=== PATIENT | female | born 1995 | race Caucasian/White ===

== ENCOUNTER 2022-07-27 09:47 | Emergency (ER) | payer OTHER, SELFPAY ==
[2022-07-27 10:00] VITALS: BP 116/72; PULSE 87; RESP 16; TEMP 36.6; O2SAT 100
--- NOTE | 2022-07-27 10:13 | ED.GENADULT ---
HPI - General Adult General Chief complaint: Ear Stated complaint: Bilateral Ear Irritation Time Seen by Provider: 07/27/22 10:13 Source: patient Mode of arrival: ambulatory Limitations: no limitations History of Present Illness HPI narrative: 26-year-old female patient presents to the [facility] with complaints of bilateral ear fullness, pressure to the head, runny nose, stuffy nose, cough, body aches, low-grade fevers for the past 2 days. Denies any nausea, vomiting or diarrhea. Any chest pain, shortness of breath. Patient states multiple people in the household have had bilateral ear infections recently and her symptoms started 2 days ago when to come and get checked out. Related Data Home Medications Medication Instructions Recorded Confirmed No Home Medications 07/27/22 07/27/22 Allergies Allergy/AdvReac Type Severity Reaction Status Date / Time No Known Allergies Allergy Verified 07/27/22 10:04 Review of Systems Review of Systems: CONSTITUTIONAL: Positive low-grade fever, positive body aches, denies chills, or sweats. EYES: Denies visual changes, redness, or discharge. ENT: positive rhinorrhea, congestion, denies sore throat, positive bilateral otalgia. CARDIOVASCULAR: Denies chest pain, palpitations, or edema. RESPIRATORY: positive mild cough , denies dyspnea. GASTROINTESTINAL: Denies abdominal pain, nausea, vomiting, or diarrhea. GENITOURINARY: Denies dysuria or hematuria. SKIN: Denies rash or itching. MUSCULOSKELETAL: Denies back pain, joint pain, or myalgia. NEUROLOGIC: positive headache, denies numbness, or weakness. PSYCHIATRIC: Denies anxiety or depression. PMFSH Past Medical History Medical History Wellness examination Family History Family History Mother Hypertension Social History Social History Smoking status: Never smoker Alcohol intake: never Comments At the time of my signature I agree with nursing past medical history, surgical, social, and family history. There is no relevant family history pertinent to the presenting complaint. Exam Narrative: GENERAL: Well-appearing, well-nourished, and in no acute distress. HEAD: Normocephalic, atraumatic. EYES: PERRLA and EOMI. ENT: Nares with erythema and edema noted bilaterally no rhinorrhea or epistaxis. Mucous membranes moist. posterior pharynx with no erythema, tonsillar swelling, exudates or lesions present. Bilateral TMs are clear no erythema or foreign bodies the canal. NECK: Supple. No lymphadenopathy CHEST: Clear to auscultation. No respiratory distress. HEART: Regular rate and rhythm. No murmur heard. Normal peripheral pulses. ABDOMEN: Soft, nontender, nondistended, normal active bowel sounds. EXTREMITIES: Normal range of motion. No edema. SKIN: Warm, dry, no rash. NEURO: No focal deficits. Alert and oriented x3. Course Course Level of Care: Express Care Visit Reevaluation(s) Reevaluation #1: Notified patient the liver swab today are negative. Discussed with her that she has a most likely a viral infection which she can take [id number] medications for. Patient verbalized understanding denies any other questions or concerns at this time. Date: 07/27/22 Time: 10:50 Vital Signs Vital signs: Vital Signs Temperature 36.6 C 07/27/22 10:00 Pulse Rate 87 07/27/22 10:00 Respiratory Rate 16 07/27/22 10:00 Blood Pressure 116/72 07/27/22 10:00 Pulse Oximetry 100 07/27/22 10:00 Oxygen Delivery Room Air 07/27/22 10:00 Temperature 36.6 C 07/27/22 10:00 Pulse Rate 87 07/27/22 10:00 Respiratory Rate 16 07/27/22 10:00 Blood Pressure 116/72 07/27/22 10:00 Pulse Oximetry 100 07/27/22 10:00 Oxygen Delivery Room Air 07/27/22 10:00 Vital signs reviewed. Medical Decision Making MDM Narrative Medical decisflor
== END 2022-07-27 10:52 | disposition home or self-care (01) ==
PROVIDERS: Emergency Provider Nurse Practitioner Family; PCP Family Medicine
DX: B34.9 Viral infection, unspecified (principal); Z20.822 Contact with and (suspected) exposure to COVID-19
CPT/HCPCS: 87081; 87426; 87804; 87880; 99213; C9803; G0463

== ENCOUNTER 2024-01-28 15:17 | Outpatient (CLI) | payer OTHER, SELFPAY ==
--- NOTE | ~2024-01-28 | US_ITS ---
COMPLETE AND LIMITED MATERNAL ULTRASOUND (Doppler ultrasound interrogation techniques used as n eeded for this exam.) Ordering provider: Iram Avelar MD History: . Anatomy scan . Comparison: None. Findings: : Single live fetus of transverse lie. Presentation is feet. heart rate measured at 151 bpm which is within normal limits. Ultrasound age is 20 weeks and 0 days. ABBEY is June 16, 2024 Placenta is anterior. Distance from the cervix is 3.6 cm. The cervix measures 4.5 cm. --SCREENING OF ANATOMY: Heart (4 chambers): Seen and unremarkable. Brain survey: Unremarkable. Ventricles, choroid plexus, falx and cavum septum are normal. Cerebellum and cisterna magna are normal. Nuchal fold is normal. Upper abdomen is normal. Abdomen: Unremarkable. Stomach: Normal. Diaphragm: Normal. Cord insertion: Unremarkable. 3 vessel cord: Present and unremarkable. Bladder: Unremarkable. Kidneys: Unremarkable. Spine: Unremarkable. Arteries, hands, legs and feet are normal. -- BIOMETRICS: BPD: 47.3 mm = 20 weeks and 2 days HC: 172.1 mm = 19 weeks and 5 days FL: 31.1 mm = 19 weeks and 5 days AC: 151.4 mm = 20 weeks and 3 days HC/AC: 1.14. FL/BPD: 65.81. FL/AC: 20.54 Extrapolated weight is 327.28 g. EFW/GP 71.9%. Amniotic fluid volume is subjectively within normal limits. No evidence for significant placental ano malies including placenta previa. IMPRESSION: UNREMARKABLE COMPLETE AND LIMITED MATERNAL US. Reviewed, dictated and finalized at location A.
== END 2024-01-28 15:18 | disposition home or self-care (01) ==
LOC: MICIMG 15:18
PROVIDERS: PCP Obstetrics & Gynecology; Visit Provider Obstetrics & Gynecology
DX: Z36.9 Encounter for antenatal screening, unspecified (principal); Z3A.00 Weeks of gestation of pregnancy not specified
CPT/HCPCS: 76805